=== PATIENT | female | born 1980 | race Caucasian/White ===

== ENCOUNTER 2016-12-25 16:03 | Emergency (ER) | payer MEDICAID ==
--- NOTE | 2016-12-25 16:51 | ED Physician Chart ---
ED Chief Complaint/HPI - Patient Information Date Seen:: 12/25/16 Time Seen:: 16:20 Chief Complaint:: painful lesion left hemibuttocks History of Present Illness:: Patient's had a painful red lesion on the left buttocks and a smaller lesion on the right hemibuttocks for 3 days. Patient denies trauma, chills or fever Allergies:: Allergies Allergy/AdvReac Type Severity Reaction Status Date / Time No Known Allergies Allergy Verified 12/25/16 16:28 Vitals:: Vital Signs - 8 hr 12/25/16 16:29 Temp 98.5 F HR 83 RR 17 BP 100/64 O2 Sat % 100 Historian:: Patient Review:: Nurse's Note Reviewed ED Review of Systems - Review of Systems General/Constitutional: No fever, No chills Skin: Skin lesions Head: No headache Eyes: No loss of vision ENT: No earache Neck: No neck pain, No swelling, No stiffness, No mass noted Cardio Vascular: No chest pain, No palpitations Pulmonary: No SOB GI: No nausea, No vomiting, No diarrhea G/U: No dysuria Musculoskeletal: No bone or joint pain Endocrine: No polyuria Psychiatric: No prior psych history Hematopoietic: No bruising Allergic/Immuno: No urticaria Neurological: No syncope, No focal symptoms ED Past Medical History - Past Medical History Past Medical History: No significant medical hx Family History: None Social History: Non Smoker, No Alcohol Surgical History: None Psychiatricy History: None Medication: None ED Physical Exam - Physical Examination General/Constitutional: Well-developed, well-nourished, Alert, No distress Head: Atraumatic Eyes: Lids, conjuctiva normal, PERRL Other Skin comments:: 8 x 7 cm area of erythema and induration with a well-demarcated border left lateral hemibuttocks; 2 cm of redness with 1 mm pustule right hemibuttocks ENMT: External ears, nose nl Neck: No nuchal rigidity Respiratory: Nl effort/Exclusion, Clear to Auscultation Cardio Vascular: RRR, No murmur, gallop, rubs GI: No tenderness/rebounding/guarding : No CVA tenderness Extremities: No tenderness or effusion Neuro/Psych: Alert/oriented Misc: Normal back ED Assessment - Procedures Procedures:: Abscess left hemibuttocks: Skin: The patient cleanse with betadine solution; 1% Xylocaine for local anesthesia; 1/2 cm incision made with #15 scalpel; pus and blood out; irrigated with normal saline; probed gently with curved hemostat; one quarter-inch iodoform packing strips placed in the abscess. ED Septic Shock - . Is Septic Shock (SBP<90, OR Lactate>4 mmol\L) present?: No - <6hrs of presentation: Vital Signs: Vital Signs - 8 hr 12/25/16 16:29 Temp 98.5 F HR 83 RR 17 BP 100/64 O2 Sat % 100 ED Reassessment (Disposition) - Reassessment Reassessment:: The abscess is almost certainly caused by MRSA. Reassessment Condition:: Improved - Diagnosis Diagnosis:: Abscess left hemibuttocks; cellulitis right hemibuttocks. - Aftercare/Follow up Instructions Aftercare/Follow-Up Instructions:: Refer to Discharge Instructions Medication Prescribed:: Bactrim DS No. 20 to take one twice a day and [place] 10/325 #12 to take 1 4 times a day. - Patient Disposition Discharge/Transfer:: Home Condition at Disposition:: Stable, Improved
[2016-12-25] MEDS ORDERED: Sulfamethoxazole/TMP 800/160mg Tab PO ONE (17:01)
[2016-12-25] MEDS ORDERED: Sulfamethoxazole/TMP 800/160mg Tab ONE (17:10)
[2016-12-25] MEDS ORDERED: Acetaminophen 500 MG TAB ONE (17:10)
== END 2016-12-25 17:45 | disposition home or self-care (01) ==
LOC: ER 16:03
DX: L03.317 Cellulitis of buttock (principal)
CPT/HCPCS: 10060; A4217; Z7502; Z7610